=== PATIENT | female | born 1990 | race Caucasian/White ===

== ENCOUNTER 2019-10-29 04:26 | Emergency (ER) | payer MEDICAID, SELFPAY ==
[2019-10-29 04:36] VITALS: BP 120/70; PULSE 86; RESP 14; TEMP 36.8; O2SAT 98; BMI 19.5
--- NOTE | 2019-10-29 04:45 | CT_ITS ---
PROCEDURE: CT ABDOMEN PELVIS W CON CLINICAL INDICATION: RUQ pain Abdominal pain, right upper quadrant pain COMPARISON: No exams were available for comparison TECHNIQUE: IV Contrast: 75ML OPTIRAY 350 Oral Contrast 20ml Gastroview Axial images obtained with sagittal and coronal reformats. All CT scans at the facility use one or more dose reduction, viz: automated exposure control, ma/kV adjustment per patient size (including targeted exams where dose is matched to indication, i.e. head), or iterative reconstruction technique. FINDINGS: LOWER THORAX: No acute finding ABDOMEN & PELVIS: The liver, spleen, adrenal glands, pancreas, and kidneys have an unremarkable appearance. Gallbladder is distended. On image number 35 series 3 there is a small area of increased density in the region of the neck of the gallbladder. This could be due to partial volume averaging artifact or possible small noncalcified stone. Gallbladder ultrasound may provide further evaluation. This area measures approximately 8-9 mm. A No evidence of appendicitis, intestinal obstruction, free air, or diverticulitis. The Tubal ligation clips are present. The uterus has a somewhat bulky appearance with undulated margins. Fibroid involvement is a consideration. Pelvic ultrasound may provide further evaluation. There are small left ovarian follicles noted. No acute bony findings. IMPRESSION: 1. Distended gallbladder with possible stone or sludge in the cystic duct. Gallbladder ultrasound may provide further evaluation. 2. Mild lobular contour of the uterus which could be seen with fibroids and may be better evaluated with ultrasound. Dictated by: Rogerio Casarez MD 10/29/2019 08:21 Electronically signed by Rogerio Casarez MD in [place] 10/29/2019 08:21
[2019-10-29 04:52] LABS: Microscopic, Urine URINE MICROSCOPIC (MICROSCOPIC)
[2019-10-29 04:54] LABS: Basophils # 0.1 K/mm3 (0-0.2); Basophils % 0.8 % (0.1-2.0); Eosinophils # 0.2 K/mm3 (0.0-0.4); Eosinophils % 2.3 % (0.1-12.0); Hematocrit 41.7 % (37.0-47.0); Hemoglobin 13.5 g/dL (12.2-16.2); Lymphocytes # 2.8 K/mm3 (0.7-4.5); Lymphocytes % 27.5 % (10-50); Mean Corpuscular HGB Conc 32.3 g/dL (31.8-35.4); Mean Corpuscular Hemoglobin 28.2 pg (27.0-31.2); Mean Corpuscular Volume 87.2 fl (81-99); Mean Platelet Volume 9.1 fl (7.4-10.4); Monocytes # 0.5 K/mm3 (0.1-1.0); Neutrophils # 6.6 K/mm3 (1.8-7.8); Neutrophils % 64.5 % (37.0-80.0); Platelet Count 305 K/mm3 (142-424); Red Blood Count 4.78 M/mm3 (4.20-5.40); Red Cell Distribution Width 13.9 % (11.5-17.5); White Blood Count 10.3 K/mm3 (4.8-10.8)
--- NOTE | 2019-10-29 04:58 | PC.NURSE ---
Pt completed oral contrast, Pilar notified in radiology
[2019-10-29 05:04] LABS: Appearance,Urine CLEAR (Clear); Bilirubin,Urine Negative (Negative); Blood, Urine 2+ (Negative); Color,Urine YELLOW (Yellow); Glucose,Urine (UA) Negative (Negative); Ketones,Urine Negative (Negative); Leukocyte Esterase,Urine Negative (Negative); Nitrate,Urine Negative (Negative); Protein,Urine Negative (Negative); Specific Gravity, Urine >= 1.030 (1.005-1.030); Urobilinogen,Urine 0.2 EU/dl (0.2)
[2019-10-29 05:07] LABS: Amorphous Sediment,Urine Trace /lpf; Mucus,Urine 1+ /lpf
[2019-10-29 05:08] LABS: Alanine Aminotransferase 34 U/L (12-78); Albumin Level 4.4 g/dl (3.5-5.0); Albumin/Globulin Ratio 1.4 (1.1-1.8); Alkaline Phosphatase 68 U/L (38-126); Amylase 47 U/L (30-110); Anion Gap 11.8 mEq/L (5-15); Aspartate Amino Transferase 35 U/L (14-36); Blood Urea Nitrogen 8 mg/dl (7-17); Carbon Dioxide 26 mmol/L (22.0-30.0); Chloride 103 mmol/L (98-107); Creatinine Clearance Estimated 131 mL/min (50-200); Estimated Glomerular Filt Rate 146 ml/min (>60); GFR (African American) 177 ML/MIN (>60); Globulin 3.2 g/dL (1.3-3.2); Glucose 92 mg/dl (74-100); Lipase 27 U/L (23-300); Potassium 3.8 mmoL/L (3.5-5.1); Sodium 137 mmol/L (136-145); Total Protein,Serum 7.6 g/dl (6.3-8.2)
[2019-10-29 05:10] LABS: Bilirubin,Total < 0.1 mg/dl (0.2-1.3)
[2019-10-29 05:45] VITALS: BP 115/63; PULSE 63; RESP 14; O2SAT 97
[2019-10-29 06:44] VITALS: BP 109/70; PULSE 71; RESP 16; O2SAT 98
--- NOTE | 2019-10-29 07:18 | HMH.EDABDPAI ---
ED Disposition Clinical Impression: Colitis Disposition: Home, Self-Care Condition on Discharge: Good Instructions: DI for Acute Abdomen Prescriptions: Dicyclomine HCl [Bentyl 10mg capsule] 10 mg PO TID 4 Days #21 cap Transmission Status: Pending to [facility] Ciprofloxacin HCl [Cipro 500mg Tab] 500 mg PO BID 10 Days #20 tab Transmission Status: Pending to [facility] metroNIDAZOLE [Flagyl 500mg Tablet] 500 mg PO Q8H 7 Days #21 tab Transmission Status: Pending to [facility] Promethazine HCl 50 mg PO TID 4 Days #15 tab Transmission Status: Pending to [facility] Referrals: Provider,Referral, [Primary Care Provider] - - Critical Care Critical Care Time: No Attestation: On 10/29/19, the high probability of a clinically significant, sudden or life threatening deterioration of the following system(s) required my full and direct attention, intervention and personal management. The time I documented below is in addition to time spent performing reported procedures but includes the following listed in this critical care notation. Medical Decision Making - Medical Records Medical records reviewed: Yes: I reviewed the patient's medical records. - Chacho Inquiry Pt receiving controlled substance: No Vital Signs: 10/29/19 04:36 10/29/19 05:45 10/29/19 06:44 Temperature 98.3 F Temperature Source Oral Pulse Rate [Right] 86 63 71 Respiratory Rate 14 14 16 Blood Pressure [Right Arm] 120/70 115/63 109/70 L Blood Pressure Mean [Right Arm] 86 80 83 Blood Pressure Source [Right Arm] Automatic Cuff Automatic Cuff Blood Pressure Position [Right Arm] Sitting Supine 02 Sat by Pulse Oximetry 98 97 98 Oxygen Delivery Method Room Air Room Air Room Air - Lab Data Lab results reviewed: Yes: I reviewed the patient's lab results. Lab Results 10/29/19 04:43: Urine Color Yellow, Urine Appearance Clear, Urine pH 6.0, Ur Specific [place] >= 1.030, Urine Protein Negative, Urine Glucose (UA) Negative, Urine Ketones Negative, Urine Blood 2+, Urine Nitrate Negative, Urine Bilirubin Negative, Urine Urobilinogen 0.2, Ur Leukocyte Esterase Negative, Urine RBC 3-5, Urine WBC 3-5, Ur Squamous Epith Cells 5-10, Amorphous Sediment Trace, Urine Mucus 1+ 04/27/20 04:43: WBC 10.3, RBC 4.78, Hgb 13.5, Hct 41.7, MCV 87.2, MCH 28.2, MCHC 32.3, RDW 13.9, Plt Count 305, MPV 9.1, Neut % (Auto) 64.5, Lymph % (Auto) 27.5, [place] % (Auto) 5.0, Eos % (Auto) 2.3, Baso % (Auto) 0.8, Neut # (Auto) 6.6, Lymph # (Auto) 2.8, [place] # (Auto) 0.5, Eos # (Auto) 0.2, Baso # (Auto) 0.1 10/29/19 04:43: Sodium 137, Potassium 3.8, Chloride 103, Carbon Dioxide 26, Anion Gap 11.8, BUN 8, Creatinine 0.50 L, Estimated Creat Clear 131, Estimated GFR 146, Est GFR ( Amer) 177, Glucose 92, Calcium 10.0, Total Bilirubin < 0.1 L, AST 35, ALT 34, Alkaline Phosphatase 68, Total Protein 7.6, Albumin 4.4, Globulin 3.2, Albumin/Globulin Ratio 1.4, Amylase 47, Lipase 27 Result diagrams: 10/29/19 04:43 10/29/19 04:43 Orders (Tests/Meds): ED MEDICATIONS Generic Name Dose Route Start Last Admin Trade Name Freq PRN Reason Stop Dose Admin Sodium Chloride 1,000 mls @ 999 mls/hr 10/29/19 05:00 10/29/19 04:58 Sod Chlor 0.9% 1000ml Bag IV 10/29/19 06:00 999 mls/hr .Q1H1M DANETTE Administration Discontinued Medications Generic Name Dose Route Start Last Admin Trade Name Freq PRN Reason Stop Dose Admin Diatrizoate Meglum/Diatrizoate Sod 30 ml 10/29/19 04:45 10/29/19 04:57 Gastrografin 66%-10% 30ml PO 10/29/19 04:46 30 ml ONCE ONE Administration Ioversol 75 ml 10/29/19 07:05 10/29/19 07:06 Rad-Optiray 350 100ml Vial IV 10/29/19 07:06 75 ml ONCE ONE Administration Protocol Ketorolac Tromethamine 30 mg 10/29/19 05:20 10/29/19 05:24 Toradol 30mg/Ml Vial IV 10/29/19 05:21 30 mg ONCE ONE Administration Sodium Chloride 10 ml 10/29/19 07:05 10/29/19 07:06 Rad-Saline Flush 10ml Syringe IV
[2019-10-29 07:30] VITALS: BP 112/70; PULSE 72; RESP 18; O2SAT 98
[2019-10-29 07:37] VITALS: BP 112/70; PULSE 72; RESP 18; TEMP 36.8; O2SAT 98
== END 2019-10-29 07:39 | disposition home or self-care (01) ==
PROVIDERS: Emergency Provider Family Medicine
DX: K52.9 Noninfective gastroenteritis and colitis, unspecified (principal); F17.210 Nicotine dependence, cigarettes, uncomplicated
CPT/HCPCS: 74177; 80053; 81001; 82150; 83690; 85025; 96365; 96375; 99284; Q9967

== ENCOUNTER 2019-11-08 18:44 | Observation (INO) | payer MEDICAID, SELFPAY ==
[2019-11-08 18:58] VITALS: BP 121/80; PULSE 97; RESP 18; TEMP 36.9; O2SAT 98; BMI 28.0
[2019-11-08 19:11] LABS: Basophils # 0.1 K/mm3 (0-0.2); Basophils % 0.7 % (0.1-2.0); Eosinophils # 0.1 K/mm3 (0.0-0.4); Eosinophils % 1.1 % (0.1-12.0); Hematocrit 42.7 % (37.0-47.0); Hemoglobin 13.6 g/dL (12.2-16.2); Lymphocytes # 1.4 K/mm3 (0.7-4.5); Lymphocytes % 17.5 % (10-50); Mean Corpuscular HGB Conc 31.9 g/dL (31.8-35.4); Mean Corpuscular Hemoglobin 27.6 pg (27.0-31.2); Mean Corpuscular Volume 86.5 fl (81-99); Mean Platelet Volume 8.7 fl (7.4-10.4); Monocytes # 0.6 K/mm3 (0.1-1.0); Monocytes % 8.1 % (1.7-9.3); Neutrophils # 5.8 K/mm3 (1.8-7.8); Neutrophils % 72.6 % (37.0-80.0); Platelet Count 311 K/mm3 (142-424); Red Blood Count 4.93 M/mm3 (4.20-5.40); White Blood Count 7.9 K/mm3 (4.8-10.8)
[2019-11-08 19:34] LABS: Chloride 105 mmol/L (98-107); Potassium 3.8 mmoL/L (3.5-5.1); Sodium 140 mmol/L (136-145)
[2019-11-08 19:35] LABS: Appearance,Urine CLEAR (Clear); Blood, Urine TRACE-I (Negative); Glucose,Urine (UA) Negative (Negative); Ketones,Urine Negative (Negative); Leukocyte Esterase,Urine TRACE (Negative); Microscopic, Urine URINE MICROSCOPIC (MICROSCOPIC); Nitrate,Urine Negative (Negative); Protein,Urine Negative (Negative); Specific Gravity, Urine 1.025 (1.005-1.030)
[2019-11-08 19:37] LABS: Alanine Aminotransferase 710 U/L (12-78); Albumin Level 4.5 g/dl (3.5-5.0); Albumin/Globulin Ratio 1.5 (1.1-1.8); Alkaline Phosphatase 116 U/L (38-126); Amylase 46 U/L (30-110); Anion Gap 9.8 mEq/L (5-15); Bilirubin,Total 1.7 mg/dl (0.2-1.3); Blood Urea Nitrogen 7 mg/dl (7-17); Calcium 9.4 mg/dl (8.4-10.2); Carbon Dioxide 29 mmol/L (22.0-30.0); Creatinine Clearance Estimated 157 mL/min (50-200); Estimated Glomerular Filt Rate 118 ml/min (>60); GFR (African American) 143 ML/MIN (>60); Globulin 3.1 g/dL (1.3-3.2); Glucose 101 mg/dl (74-100); Lipase 66 U/L (23-300); Total Protein,Serum 7.6 g/dl (6.3-8.2); Urine Pregnancy, HCG Qual. Negative (Negative)
[2019-11-08 19:45] VITALS: BP 110/79; PULSE 78; RESP 16; O2SAT 97
[2019-11-08 19:45] LABS: Aspartate Amino Transferase 856 U/L (14-36)
[2019-11-08 19:51] LABS: Bilirubin,Urine Negative (Negative); Color,Urine Dark Yellow (Yellow); WBC,Urine Occasional #/hpf (0-3)
[2019-11-08 19:52] LABS: Amorphous Sediment,Urine Trace /lpf; Bacteria,Urine Trace /lpf
--- NOTE | 2019-11-08 20:04 | HMH.EDGENADL ---
ED Disposition Clinical Impression: Elevated liver enzymes Cholelithiasis Qualifiers: Cholecystitis presence: without cholecystitis Biliary obstruction: with biliary obstruction Disposition: Admitted as Observation Condition on Discharge: Fair - Critical Care Critical Care Time: No Attestation: On 11/08/19, the high probability of a clinically significant, sudden or life threatening deterioration of the following system(s) required my full and direct attention, intervention and personal management. The time I documented below is in addition to time spent performing reported procedures but includes the following listed in this critical care notation. Medical Decision Making - Medical Records Medical records reviewed: Yes: I reviewed the patient's medical records. - Chacho Inquiry Pt receiving controlled substance: Yes Chacho was queried for this patient: Yes Reference #:: [id number] Risks and benefits of using a controlled substance: were not discussed with pt by me Comment: 1 rx percocet 09/12/19 Vital Signs: 11/08/19 18:58 Temperature 98.4 F Temperature Source Oral Pulse Rate [Right Radial] 97 H Respiratory Rate 18 Blood Pressure [Right Arm] 121/80 Blood Pressure Mean [Right Arm] 93 Blood Pressure Source [Right Arm] Automatic Cuff Blood Pressure Position [Right Arm] Sitting 02 Sat by Pulse Oximetry 98 Oxygen Delivery Method Room Air - Lab Data Lab Results 11/08/19 19:00: Urine Color Dark yellow, Urine Appearance Clear, Urine pH 7.0, Ur Specific [place] 1.025, Urine Protein Negative, Urine Glucose (UA) Negative, Urine Ketones Negative, Urine Blood Trace-i, Urine Nitrate Negative, Urine Bilirubin Negative, Urine Urobilinogen 1.0, Ur Leukocyte Esterase Trace, Urine WBC Occasional, Ur Squamous Epith Cells 3-5, Amorphous Sediment Trace, Urine Bacteria Trace 11/08/19 19:00: WBC 7.9, RBC 4.93, Hgb 13.6, Hct 42.7, MCV 86.5, MCH 27.6, MCHC 31.9, RDW 14.0, Plt Count 311, MPV 8.7, Neut % (Auto) 72.6, Lymph % (Auto) 17.5, [place] % (Auto) 8.1, Eos % (Auto) 1.1, Baso % (Auto) 0.7, Neut # (Auto) 5.8, Lymph # (Auto) 1.4, King # (Auto) 0.6, Eos # (Auto) 0.1, Baso # (Auto) 0.1 11/08/19 19:00: Urine HCG, Qual Negative 11/08/19 19:00: Sodium 140, Potassium 3.8, Chloride 105, Carbon Dioxide 29, Anion Gap 9.8, BUN 7, Creatinine 0.60, Estimated Creat Clear 157, Estimated GFR 118, Est GFR ( Amer) 143, Glucose 101 H, Calcium 9.4, Total Bilirubin 1.7 H, AST 856 H*, ALT 710 H*, Alkaline Phosphatase 116, Total Protein 7.6, Albumin 4.5, Globulin 3.1, Albumin/Globulin Ratio 1.5, Amylase 46, Lipase 66 Result diagrams: 11/08/19 19:00 11/08/19 19:00 Orders (Tests/Meds): ED MEDICATIONS Discontinued Medications Generic Name Dose Route Start Last Admin Trade Name Freq PRN Reason Stop Dose Admin Morphine Sulfate 4 mg 11/08/19 20:09 11/08/19 20:19 Morphine 4mg/Ml Syringe IV 11/08/19 20:10 4 mg ONCE ONE Administration Ondansetron HCl 4 mg 11/08/19 20:09 11/08/19 20:19 Zofran 4mg/2ml Vial IV 11/08/19 20:10 4 mg ONCE ONE Administration - Physician Consults Physician Consulted: Dr. Gee Time: 20:15 Reason -: Admission, Pt condition, Surgical Eval/Care Comment/Response: Agrees to admit the patient to the hospital. We discussed the patient's clinical information, including history, exam, laboratory and radiology results and ED course. Per hospital procedure, I will write temporary bridge inpatient orders on the patient. Specific orders requested by the admitting physician: Clear liquids until midnight, then n.p.o. after midnight. IV fluids. Pain medication. Repeat CBC, CMP, amylase and lipase in the morning. Medical Decision Narrative: Seen in this emergency room on 10/29/2019 for the same symptoms, CT scan results from previous visit here: PROCEDURE: CT ABDOMEN PELVIS W CON CLINICAL INDICATION: RUQ pain Abdominal pain, right upper quadrant pain COMPARISON: No exams were available for comp
--- NOTE | 2019-11-08 20:16 | PC.NURSE ---
consulting Dr. Gee
--- NOTE | 2019-11-08 21:47 | PC.NURSE ---
with pt permission pt father updated on pt condition and admission.
--- NOTE | 2019-11-08 22:10 | PC.NURSE ---
report given to Yvonne CHARLES
[2019-11-08 22:15] VITALS: BP 116/80; PULSE 70; RESP 16; TEMP 36.6; O2SAT 99; BMI 27.5
--- NOTE | 2019-11-08 22:15 | PC.NURSE ---
pt arrived to floor via wheelchair from ED
[2019-11-08 22:16] VITALS: BP 112/81; PULSE 83; RESP 16; TEMP 36.8; O2SAT 97
[2019-11-09] VITALS (31 sets, daily range): BP systolic 100–136; BP diastolic 58–82; PULSE 62–97; RESP 12–18; TEMP 36.1–43; O2SAT 93–97; BMI 27.4
--- NOTE | 2019-11-09 03:31 | PC.NURSE ---
She has been awake t/o the night. She has received PRN medication for pain and nausea. No vomiting. She reports the pain is in her mid abdominal area and radiates to her back.
--- NOTE | 2019-11-09 06:22 | HMH.GSHP ---
HPI HPI: This is a 29-year-old female who presented overnight to the emergency department with increasing epigastric pain. She had noticed upper abdominal pain over the past month that had been evaluated in late October ([facility] emergency department). At that time she was noted to have a distended gallbladder with possible stones versus sludge and a possible stone in the cystic duct. Symptomatically she had improved and was discharged with recommendations for close outpatient surgical follow-up. She was not seen by a surgeon; however, her symptoms did wax and wane . Over the past few days her symptoms had increased. She was evaluated at an outside facility and an ultrasound revealed likely stones. She presented once again to the [facility] emergency department overnight with increasing symptoms. Some nausea. No fevers. No jaundice. Her transaminases were significantly elevated and her bilirubin was slightly elevated at 1.7. The surgical service was consulted for further evaluation. Please see HPI for emergency department evaluation forwarded below: General Adult HPI - General Chief complaint: Abdominal Pain Stated complaint: Vomiting and Abd PAin Time Seen by Provider: 11/08/19 19:50 Mode of Arrival: Ambulatory Limitations: No Limitations Description of Symptoms (Recalled from ER Triage Doc. by RN): PT C/O RUQ PAIN, N/V/D. PT ADVISES THAT SHE WAS IN THE ED 1.5 WEEKS AGO AND TOLD THAT SHE HAS GALLSTONES. PT HAD HER FOLLOW-UP U/S TO CONFIRM AND STATES THAT SHE IS AWAITING SURGERY TO CALL HER FOR AN APPT. PT STATES THAT THE SYMPTOMS HAVE WORSENED. - History of Present Illness HPI narrative: Patient states she has had midepigastric pain going straight through to her back for 1 month. The pain has been constant for the past month, but waxes and wanes. It is more severe the past couple of days. She had an appointment today with [facility] in [place]. She was sent from there to [facility] radiology next to the hospital in [place] and had an ultrasound of her gallbladder. She says she was told she had gallstones. She says she was referred to a surgeon. She says she almost canceled her appointment today to go to the emergency room instead because she was hurting worse. She says she was not prescribed anything by the physician at [facility]. She has been taking Tylenol and ibuprofen for pain. She took 3 Tylenol this morning and has been taking 2 Tylenol every 4-6 hours for the pain. She does not drink alcohol. No history of drug abuse. No history of hepatitis or liver problems. She has had a previous . Pain is made worse by eating and drinking, has been unable to eat and drink the past couple of days. She has also been seen at this hospital and had a CT scan of her abdomen. [facility] History I have reviewed the patient's past medical history: Yes Medical History: Denies:: Diabetes Mellitus Type 1, Diabetes Mellitus Type 2 *Have you ever received a pneumonia vaccine?: No (refuses) *Have you received a flu vaccine this season?: No (refused) Other Surgeries: Yes: Amputation: No Fractures: No - *Social History Educational Level: Attended College Smoking Status: Current every day smoker Tobacco Type: cigarettes # Packs/Day (cigarettes): 1 Alcohol Intake: never *Occupational Status:: unemployed *Travel in the last 8 weeks: None Family Hx:: Non-contributory Review of Systems - Constitutional Denies chills - Eyes Denies change in vision - ENT Denies dizziness - *Cardiovascular Denies chest pain - *Respiratory Denies cough - *Gastrointestinal Reports abdominal pain, Reports nausea, Denies black, tarry stools, Denies pain with swallowing - *Genitourinary Denies difficulty urinating - *Musculoskeletal Denies deformity - Integumentary/Breasts Denies changing lesions - *Neurologic Denies abnormal movements - Psychiatric Denies anxiety - En
[2019-11-09 06:26] LABS: Basophils % 0.5 % (0.1-2.0); Eosinophils # 0.1 K/mm3 (0.0-0.4); Eosinophils % 1.1 % (0.1-12.0); Hematocrit 40.9 % (37.0-47.0); Hemoglobin 13.2 g/dL (12.2-16.2); Lymphocytes # 1.1 K/mm3 (0.7-4.5); Lymphocytes % 13.2 % (10-50); Mean Corpuscular HGB Conc 32.2 g/dL (31.8-35.4); Mean Corpuscular Hemoglobin 28.2 pg (27.0-31.2); Mean Corpuscular Volume 87.7 fl (81-99); Monocytes # 0.7 K/mm3 (0.1-1.0); Monocytes % 8.5 % (1.7-9.3); Neutrophils # 6.2 K/mm3 (1.8-7.8); Neutrophils % 76.7 % (37.0-80.0); Platelet Count 255 K/mm3 (142-424); Red Blood Count 4.67 M/mm3 (4.20-5.40); White Blood Count 8.1 K/mm3 (4.8-10.8)
[2019-11-09 06:35] LABS: Chloride 105 mmol/L (98-107); Potassium 4.3 mmoL/L (3.5-5.1); Sodium 139 mmol/L (136-145)
[2019-11-09 06:38] LABS: Alanine Aminotransferase 597 U/L (12-78); Alkaline Phosphatase 166 U/L (38-126); Amylase 37 U/L (30-110); Anion Gap 10.3 mEq/L (5-15); Aspartate Amino Transferase 452 U/L (14-36); Bilirubin,Total 3.2 mg/dl (0.2-1.3); Blood Urea Nitrogen 5 mg/dl (7-17); Carbon Dioxide 28 mmol/L (22.0-30.0); Creatinine Clearance Estimated 184 mL/min (50-200); Estimated Glomerular Filt Rate 146 ml/min (>60); GFR (African American) 177 ML/MIN (>60); Glucose 105 mg/dl (74-100); Lipase 22 U/L (23-300)
[2019-11-09 06:39] LABS: Albumin Level 4.3 g/dl (3.5-5.0); Albumin/Globulin Ratio 1.4 (1.1-1.8); Total Protein,Serum 7.3 g/dl (6.3-8.2)
--- NOTE | 2019-11-09 07:38 | HMH.PHAVTE ---
[facility] VTE Monitoring - Patient Demographics Admission date: 11/08/19 Report Date: 11/09/19 Time: 07:38 Allergies/Adverse Reactions: Patient Allergies No Known Allergies Allergy (Verified 11/08/19 22:21) Height: 1.6 m Weight: 70.352 kg Patient Problems: Current Active Problems Cholelithiasis (Acute) Elevated liver enzymes (Acute) - VTE Risk Labs: VTE Related Lab Results Hgb 13.2 g/dL (12.2-16.2) 11/09/19 06:05 Hct 40.9 % (37.0-47.0) 11/09/19 06:05 Plt Count 255 K/mm3 (142-424) 11/09/19 06:05 BUN 5 mg/dl (7-17) L D 11/09/19 06:05 Creatinine 0.50 mg/dl (0.52-1.04) L 11/09/19 06:05 Estimated Creat Clear 184 mL/min (50-200) 11/09/19 06:05 Was VTE Risk Assessment Performed: Yes VTE Score: 0 VTE Risk Level: Very Low Risk Clinical Trial Participant: No - Prophylaxis VTE Prophylaxis Ordered?: Yes Types of VTE Prophylaxis: TEDS Knee High
--- NOTE | 2019-11-09 08:58 | HMH.ANESCL ---
[facility] Anesthesia Checklist - Patient Identification Patient Identification: Arm Band, Verbal (Name & ) - Structural Data Admitted From: Inpatient Planned Operative Procedure/s: Laparoscopic cholecystectomy Consent for Planned Operative Procedure(s) Verified: Yes Verified Documents: Surgical Consent, History and Physical - NPO Status Verified Time NPO: 00:00 - Chart Verification Results Verified: CBC, BMP, HCG - Additional verifications Patient : No Anesthesia Reactions: No - Airway Assessment C-Spine Mobility Assessed: Yes TMJ Mobility Assessed: Yes Dentition: Good Dentition (missing teeth) - Neurological Assessment Level of Consciousness: Awake, Alert, Appropriate, Follows Commands Hx Seizures: No Numbness or tingling in extremities: No - Anesthesia Plan Anesthesia Risk discussed: Yes Anesthesia Plan: Verified ASA Class: II (Emergent) Anesthesia Type: General [facility] History I have reviewed the patient's past medical history: Yes Medical History: Denies:: Diabetes Mellitus Type 1, Diabetes Mellitus Type 2 *Have you ever received a pneumonia vaccine?: No (refuses) *Have you received a flu vaccine this season?: No (refused) Anesthesia experience/problems:: no prior complications Other Surgeries: Yes: Amputation: No Fractures: No Comment: Cystoscopy with stent placement - *Social History Educational Level: Attended College Smoking Status: Current every day smoker Tobacco Type: cigarettes # Packs/Day (cigarettes): 1 Alcohol Intake: never Substance Use Type: denies use *Occupational Status:: unemployed *Travel in the last 8 weeks: None Family Hx:: Non-contributory
--- NOTE | 2019-11-09 10:07 | HMH.OPNOTE ---
Date of procedure: 11/09/19 Pre-op Diagnosis:: Cholelithiasis Elevated transaminase Hyperbilirubinemia Post-op Diagnosis:: Same as preoperative diagnoses with the addition of the following: Acute calculus cholecystitis with hydrops Procedure performed:: Laparoscopic cholecystectomy (ERCP planned for later today) Surgeon:: John Gee MD COSTUME DESIGN TEACHER:: Sandeep Vela Anesthesia: GETA Estimated blood loss (mL): 25 Operative findings:: Severe hydrops Severe gallbladder wall thickening Severe pericholecystic fat stranding Severe dilatation of cystic duct/infundibulum Transection at infundibulum with placement of Endoloops Operative note:: After informed consent was obtained, the patient was taken to the operating room and placed in the supine position. General anesthesia was induced and the abdomen was prepped and draped in a sterile fashion. After infiltration with local anesthetic an infraumbilical incision was made. A Veress needle was placed in position. The abdomen was insufflated. A 5 mm optical trocar was placed in position. Under direct visualization, a 12 mm trocar was placed in the subxiphoid position and 2 additional 5 mm trocars were placed in the right upper quadrant. Evaluation of the gallbladder immediately revealed severe hydrops, severe pericholecystic fat stranding, and severe dilatation of the infundibulum/cystic duct. Dissection around the infundibulum confirmed severe inflammation and dilatation. Anatomic differentiation of infundibulum versus cystic duct was exceptionally difficult. The decision was made to forego increased dissection and and around the cystic duct. A dome down approach was chosen. Utilizing harmonic chapito the gallbladder was carefully from the liver margin. Once again severe inflammation and pericholecystic fat stranding confirmed. Dissection was very difficult. Endoloops (x2) were placed at the infundibulum and transection utilizing harmonic chapito just distal to the Endoloops was completed. The gallbladder was placed in a retrieval bag and removed through the subxiphoid trocar site. The right upper quadrant was thoroughly irrigated. No active bleeding or bile leak was noted. Fascia at the subxiphoid trocar site was reapproximated utilizing 0 Ethibond. The remaining trocars were removed. All wounds were irrigated and skin was closed with 4-0 Monocryl in a subcuticular fashion. Steri-Strips were applied. The patient's anesthetic agents were reversed and extubation was completed prior to transfer to recovery in stable condition. Condition: stable Disposition: PACU Specimens:: Gallbladder Complications:: No immediate
--- NOTE | 2019-11-09 10:15 | P.PN_ITS ---
[facility] Anesthesia Record Part I Intake, IV Amount: 1,200 Estimated blood loss (mL): 15 Urine output (mL): 0 (NM) Blood Products used (#): none Blood Pressure: 118/65 SaO2: 93 Pulse Rate: 90 Respiratory Rate: 16 Temperature: 97.0 F Patient is:: Drowsy, Stable Stable to PACU at:: 10:10
--- NOTE | 2019-11-09 10:54 | PC.NURSE ---
1038-detailed report called to MELVIN Paige 1040-pt transported to 2nd floor room 208 via hospital bed per MELVIN Mahoney and LorenRN with nikolai rails up and left in care of MELVIN Paige with bed locked in lowest position. VSS. Pt stable.
--- NOTE | 2019-11-09 13:18 | FL_ITS ---
PROCEDURE: FL ERCP CLINICAL INDICATION: bile duct occlusion COMPARISON: CT ABDOMEN PELVIS W CON from 10/29/2019 FINDINGS: Fluoroscopy time: 4 minutes and 10 seconds. Select images are submitted from the ERCP showing distended common bile duct with abrupt occlusion distally. The proximal biliary radicles are also distended. A stent was placed during the procedure.. There is question of some pruning of the biliary radicles IMPRESSION: Occluded common bile duct with passage of a stent and drainage of the biliary tree. Please correlate with fluoroscopic findings Dictated by: Rogerio Casarez MD 11/14/2019 10:00 Electronically signed by Rogerio Casarez MD in [place] 11/14/2019 10:00
--- NOTE | 2019-11-09 13:38 | HMH.ANESII ---
[facility] Anesthesia Record Part II Discharge Time: 10:45 Destination: Medical Surgical Department PACU nurse assessment reviewed?: Yes Patient Condition:: Good Anesthesia Complications:: None Swallowing reflex intact?: Yes Cyanosis?: No Blood Pressure: 122/75 Pulse Rate: 76 Temperature: 97.6 F Mental Status: Alert & Oriented Pain level:: 0 Nausea and/or vomitting:: None Intake, IV Amount: 0
--- NOTE | 2019-11-09 16:01 | HMH.PROC ---
[facility] Procedure Note Procedure Note:: ERCP procedure Report: Endoscopic retrograde cholangiopancreatography with biliary sphincterotomy, stone extraction and stent placement Endoscopist: Dedrick Ceballos II, MD Referring Physician: John Gee MD Date of Procedure: November 09, 2019 Equipment: Olympus 180 side viewing endoscope duodenoscope Sedation: MAC sedation Indication: Mrs. Mcarthur is a 29-year-old female who had presented 3 to 4 weeks ago with some dyspepsia. Her ultrasound at that time showed stones versus sludge and distended gallbladder. There was apparent possible cystic duct stone. The patient did improve and went home. She returned with ongoing upper abdominal pain and nausea. Lab work showed elevated transaminases with ALT 710, AST 856, alkaline phosphatase 116 and total bilirubin 1.7. Overnight, her transaminases improved with ALT this morning 597. Her alkaline phosphatase bumped up to 166 and her total bilirubin increased to 3.2. She did have cholecystectomy today and had acute cholecystitis with hydrops and gallstones. Procedure: Prior to the procedure, a history and physical exam was performed, and patient's medications and allergies were reviewed. The risks, benefits and alternatives of the sedation and procedure were discussed with the patient. All questions were answered and informed consent was obtained. The patient was brought to the fluoroscopic radiology room. Patient identification and proposed procedure were verified by the physician and the nurse. The patient was placed in a swimmer's position between left lateral decubitus and prone position and the scope was passed under direct vision. Throughout the procedure, the patient's blood pressure, pulse, and oxygen saturations were monitored continuously. The ERCP was accomplished without difficulty. The patient tolerated the procedure well. Findings: The side-viewing duodenal scope was advanced directly into the upper esophagus and passed to the second portion of the duodenum. The ampulla was well visualized. Both the common bile duct and pancreatic duct were cannulated. A partial but not full pancreatogram was performed and there was normal filling of the head, neck and a portion of the body of the pancreas which was normal at 2 to 3 mm size and no ductular ectasias. Full filling of the pancreatic duct was not performed to prevent post ERCP pancreatitis. Next, the common bile duct was selectively cannulated. The cholangiogram did show a dilated 9 to 10 mm common bile duct with a distal filling defect which appeared to be partially with some sludge and stone in the distal common bile duct. This did measure 8 x 10 mm. There was normal filling of the intrahepatic biliary system there was no biliary stricturing. The cystic duct stump showed some partial filling. Next, a biliary sphincterotomy was performed. There was extravasation of some purulent cloudy liquid/pus and fragmented debris/sludge. After a generous biliary sphincterotomy, a 9 to 12 mm balloon was placed at the hilum and swept through the biliary system. There was a moderate amount of sludge and fragmented stone but not a full stone. Another cholangiogram showed that there was still some impacted stone at or near the ampulla. The sweeping balloon was used to dilate at the ampulla. After several biliary sweeps, there was excellent decompression of the biliary system but because of the proximal ampullary edema and passage of continued pus and fragmented debris, a 10 English/7 cm straight stent was deployed into the biliary system with excellent placement confirmed fluoroscopically. There was still some cloudy drainage through the stent. The procedure was then ended. Impression: 1. Choledocholithiasis with early cholangitis status post sphincterotomy and stone extraction with stent placement Plan: I will plan to have the patient return in 8 to 10 weeks with removal of the biliary stent. At that time,
--- NOTE | 2019-11-09 18:09 | PC.NURSE ---
Pt has been pleasant and cooperative this shift. Pt has been off the unit the majority of the shift for a cholecystectomy and an ERCP. No complaints of SOA. Pt complained of pain X2 this shift and was medicated with Morphine and Mission per SEP. Pt ambulates independently to and from the bathroom. Bilateral IPC sleeves in place to lower extremities. Diet changed to ice chips only until AM, then advance as tolerated per Dr. Ceballos. AM assessment findings remain unchanged with nothing abnormal to note. 20 G peripheral IV in place to the RT AC with NS infusing @ 125 ML/HR. VSS. Call light within reach. Will continue to monitor.
--- NOTE | 2019-11-09 19:09 | PC.NURSE ---
report given to ml
[2019-11-10] VITALS: BP 110/63; PULSE 81; RESP 16; TEMP 36.7; O2SAT 95
--- NOTE | 2019-11-10 02:56 | PC.NURSE ---
A&O X4. PT HAS RESTED WELL T/O SHIFT WITH EYES CLOSED. BILATERAL LUNGS NOTED CLEAR T/O UPON AUSCULTATION. TOLERATED RA WELL. DENIES SOA OR COUGH. DENIES AMB TENDERNESS UPON PALPATION. LAP SITES X3 NOTED TO ABDOMEN. DSG'S NOTED DRY AND INTACT WITH MINIMAL DRAINAGE NOTED. PT C/O MINIMAL PAIN TO ABDOMEN THIS SHIFT. THUS FAR THIS RN HAS ADMINISTERED ONE DOSE OF NORCO PER SEP. UPON REASSESSMENT PT STATES ADEQUATE PAIN RELIEF. DENIES N/V. PT REMAINS NPO WITH ICE CHIPS ONLY. WILL ADVANCE DIET TOLERATED THIS AM PER MD ORDERS. SCUDS NOTED ON BLE. AMB INDEPENDENTLY TO AND FROM BATHROOM. NO BM THUS FAR THIS SHIFT. VSS. REMAINS SAFE. CALL LIGHT WITHIN REACH. WILL CONTINUE TO MONITOR.
[2019-11-10 04:00] VITALS: BP 110/63; PULSE 92; RESP 17; TEMP 36.9; O2SAT 95
[2019-11-10 04:40] VITALS: BMI 28.7
--- NOTE | 2019-11-10 06:36 | PC.NURSE ---
THIS RN GAVE PT APPLE JUICE THIS AM UPON ROUNDS. UPON REASSESSMENT PT STATES NO DISCOMFORT OR PAIN AFTER DRINKING THE JUICE. ORDERED ADV DIET OF FULL LIQUIDS FOR HER BREAKFAST TRAY.
[2019-11-10 07:47] LABS: Basophils % 0.4 % (0.1-2.0); Eosinophils % 0.5 % (0.1-12.0); Hematocrit 38.1 % (37.0-47.0); Hemoglobin 12.2 g/dL (12.2-16.2); Lymphocytes # 1.8 K/mm3 (0.7-4.5); Lymphocytes % 19.8 % (10-50); Mean Corpuscular Hemoglobin 27.5 pg (27.0-31.2); Mean Corpuscular Volume 85.7 fl (81-99); Mean Platelet Volume 9.7 fl (7.4-10.4); Monocytes # 0.5 K/mm3 (0.1-1.0); Neutrophils # 6.5 K/mm3 (1.8-7.8); Neutrophils % 73.4 % (37.0-80.0); Platelet Count 310 K/mm3 (142-424); Red Blood Count 4.44 M/mm3 (4.20-5.40); Red Cell Distribution Width 14.3 % (11.5-17.5); White Blood Count 8.9 K/mm3 (4.8-10.8)
[2019-11-10 08:00] VITALS: BP 124/74; PULSE 100; RESP 18; TEMP 37.1; O2SAT 97
[2019-11-10 08:07] LABS: Alanine Aminotransferase 351 U/L (12-78); Albumin Level 3.8 g/dl (3.5-5.0); Albumin/Globulin Ratio 1.4 (1.1-1.8); Alkaline Phosphatase 231 U/L (38-126); Anion Gap 9.2 mEq/L (5-15); Aspartate Amino Transferase 171 U/L (14-36); Bilirubin,Total 3.1 mg/dl (0.2-1.3); Blood Urea Nitrogen 5 mg/dl (7-17); Calcium 8.4 mg/dl (8.4-10.2); Carbon Dioxide 24 mmol/L (22.0-30.0); Chloride 106 mmol/L (98-107); Creatinine Clearance Estimated 161 mL/min (50-200); Estimated Glomerular Filt Rate 118 ml/min (>60); GFR (African American) 143 ML/MIN (>60); Globulin 2.8 g/dL (1.3-3.2); Glucose 116 mg/dl (74-100); Potassium 3.2 mmoL/L (3.5-5.1); Sodium 136 mmol/L (136-145); Total Protein,Serum 6.6 g/dl (6.3-8.2)
--- NOTE | 2019-11-10 08:33 | P.PN_ITS ---
Subjective Patient reports: feels better Narrative: Patient states that she feels much better after her cholecystectomy and ERCP. Exam Vital signs and Labs for Last 24 Hours: Temp Pulse Resp BP Pulse Ox 98.7 F 100 H 18 124/74 97 11/10/19 08:00 11/10/19 08:00 11/10/19 08:00 11/10/19 08:00 11/10/19 08:00 Laboratory Results - last 24 hr 11/09/19 05:39: POC Glucose Cancelled 11/10/19 07:35: WBC 8.9, RBC 4.44, Hgb 12.2, Hct 38.1, MCV 85.7, MCH 27.5, MCHC 32.0, RDW 14.3, Plt Count 310, MPV 9.7, Neut % (Auto) 73.4, Lymph % (Auto) 19.8, [place] % (Auto) 6.0, Eos % (Auto) 0.5, Baso % (Auto) 0.4, Neut # (Auto) 6.5, Lymph # (Auto) 1.8, [place] # (Auto) 0.5, Eos # (Auto) 0.0, Baso # (Auto) 0.0 11/10/19 07:35: Sodium 136, Potassium 3.2 L D, Chloride 106, Carbon Dioxide 24, Anion Gap 9.2, BUN 5 L, Creatinine 0.60, Estimated Creat Clear 161, Estimated GFR 118, Est GFR ( Amer) 143, Glucose 116 H, Calcium 8.4, Total Bilirubin 3.1 H, AST 171 H D, ALT 351 H*, Alkaline Phosphatase 231 H, Total Protein 6.6, Albumin 3.8 D, Globulin 2.8, Albumin/Globulin Ratio 1.4 I & O for Last 24 hours: Intake & Output 11/07/19 11/08/19 11/09/19 11/10/19 11:59 11:59 11:59 11:59 Intake Total 2000 / 1999 1100 / 1100 Output Total 800 / 800 1300 / 1300 Balance 1200 / 1200 -200 / -200 Weight 155 lb 1.6 oz 162 lb 2 oz - *Routine Abdominal Exam Present: soft Progress Note: A&P (1) Cholelithiasis Status: Acute Current Visit: Yes (2) Elevated liver enzymes Status: Acute Current Visit: Yes Assessment and Plan for All Diagnoses:: Plan for discharge home with early outpatient follow-up with surgery and follow- up with gastroenterology.
--- NOTE | 2019-11-10 10:12 | HMH.DCSUM ---
General - General Admission date:: 11/08/19 Discharge date: 11/10/19 HPI HPI: This is a 29-year-old female who presented overnight to the emergency department with increasing epigastric pain. She had noticed upper abdominal pain over the past month that had been evaluated in late October ([facility] emergency department). At that time she was noted to have a distended gallbladder with possible stones versus sludge and a possible stone in the cystic duct. Symptomatically she had improved and was discharged with recommendations for close outpatient surgical follow-up. She was not seen by a surgeon; however, her symptoms did wax and wane . Over the past few days her symptoms had increased. She was evaluated at an outside facility and an ultrasound revealed likely stones. She presented once again to the [facility] emergency department overnight with increasing symptoms. Some nausea. No fevers. No jaundice. Her transaminases were significantly elevated and her bilirubin was slightly elevated at 1.7. The surgical service was consulted for further evaluation. Please see HPI for emergency department evaluation forwarded below: General Adult HPI - General Chief complaint: Abdominal Pain Stated complaint: Vomiting and Abd PAin Time Seen by Provider: 11/08/19 19:50 Mode of Arrival: Ambulatory Limitations: No Limitations Description of Symptoms (Recalled from ER Triage Doc. by RN): PT C/O RUQ PAIN, N/V/D. PT ADVISES THAT SHE WAS IN THE ED 1.5 WEEKS AGO AND TOLD THAT SHE HAS GALLSTONES. PT HAD HER FOLLOW-UP U/S TO CONFIRM AND STATES THAT SHE IS AWAITING SURGERY TO CALL HER FOR AN APPT. PT STATES THAT THE SYMPTOMS HAVE WORSENED. - History of Present Illness HPI narrative: Patient states she has had midepigastric pain going straight through to her back for 1 month. The pain has been constant for the past month, but waxes and wanes. It is more severe the past couple of days. She had an appointment today with [facility] in [place]. She was sent from there to [facility] radiology next to the hospital in [place] and had an ultrasound of her gallbladder. She says she was told she had gallstones. She says she was referred to a surgeon. She says she almost canceled her appointment today to go to the emergency room instead because she was hurting worse. She says she was not prescribed anything by the physician at [facility]. She has been taking Tylenol and ibuprofen for pain. She took 3 Tylenol this morning and has been taking 2 Tylenol every 4-6 hours for the pain. She does not drink alcohol. No history of drug abuse. No history of hepatitis or liver problems. She has had a previous . Pain is made worse by eating and drinking, has been unable to eat and drink the past couple of days. Hospital Course Hospital Course: The patient underwent laparoscopic cholecystectomy followed by ERCP. Please see operative/procedure reports for detail. She was found to have acute calculous cholecystitis with hydrops, as well as, choledocholithiasis. She was placed on Zosyn post-operatively and remained afebrile with stable and normal vital signs. She ambulated without difficulty and tolerated clear liquids. She convalesced well and was deemed appropriate for discharge on POD1. Objective Vital signs: Temp Pulse Resp BP Pulse Ox 98.7 F 100 H 18 124/74 97 11/10/19 08:00 11/10/19 08:00 11/10/19 08:00 11/10/19 08:00 11/10/19 08:00 no acute distress - *Routine HEENT Exam Head: Present: normocephalic, atraumatic Eye: Present: EOMI ENT: Present: mucous membranes moist - *Routine Neck Exam Present: full ROM - *Routine Respiratory Exam Present: CTA bilaterally - *Routine Cardiovascular Exam Present: RRR - *Routine Abdominal Exam Present: soft - *Routine Extremities Exam Present: full ROM - Routine Back/Spine/Pelvis Exam Back/Spine: Present: full ROM - *Rou
--- NOTE | 2019-11-10 10:35 | HMH.PHAINT ---
DISCHARGE COUNSELING COMPLETED ON PATIENT. ONLY NEW PRESCRIPTION IS LORTAB WHICH WAS SENT TO [facility]. PATIENT IS TO CONTINUE ALL OTHER HOME MEDICATIONS EXCEPT BENTYL. PATIENT VERBALIZED UNDERSTANDING AND HAD NO QUESTIONS AT THIS TIME. -AMANDA PERERA, NATHAND
== END 2019-11-10 10:06 | disposition home or self-care (01) ==
LOC: ER 20:32 → 2ND 20:58
PROVIDERS: Internal Medicine Gastroenterology; Admitting Provider Surgery; Emergency Provider Emergency Medicine; Visit Provider Surgery
PROC: 0FT44ZZ Resection of Gallbladder, Percutaneous Endoscopic Approach (ICD-10-PCS; CPT 47562; principal; 2019-11-09 08:00)
PROC: (CPT 43264; principal; 2019-11-09 13:00)
DX: K80.61 Calculus of gallbladder and bile duct with cholecystitis, unspecified, with obstruction (principal); K82.1 Hydrops of gallbladder
CPT/HCPCS: 47562; 43264; 43274; 36415; 74330; 80053; 81001; 81025; 82150; 83690; 85025; 88304; 96374; 96375; 99283; C2617; G0378; J2405; J2543

== ENCOUNTER 2020-01-07 12:57 | Day surgery (SDC) | payer MEDICAID, SELFPAY ==
[2020-01-02 13:36] VITALS: BMI 28.3
[2020-01-07] VITALS (7 sets, daily range): BP systolic 104–133; BP diastolic 52–72; PULSE 65–87; RESP 16; TEMP 36.2–36.9; O2SAT 96–100
[2020-01-07 13:36] LABS: Urine Pregnancy, HCG Qual. Negative (Negative)
[2020-01-07 14:13] LABS: Coronavirus 19 IgG Antibody Negative (Negative); Coronavirus 19 IgM Antibody Negative (Negative)
--- NOTE | 2020-01-07 15:00 | FL_ITS ---
PROCEDURE: FL ERCP CLINICAL INDICATION: stent removal COMPARISON: No exams were available for comparison FINDINGS: Fluoroscopy time: 6 minutes and 9 seconds Select images are obtained from the ERCP showing contrast injected into the common bile duct with a filling defect in the distal aspect of the common bile duct consistent with a common duct stone. There was some debris also noted in the distal common bile duct. IMPRESSION: Choledocholithiasis Dictated by: Rogerio Casarez MD 01/08/2020 12:23 Electronically signed by Rogerio Casarez MD in [place] 01/08/2020 12:23
--- NOTE | 2020-01-07 15:45 | HMH.PROC ---
[facility] Procedure Note Procedure Note:: ERCP procedure Report: Endoscopic retrograde cholangiopancreatography with stent removal, biliary sphincterotomy (extension), sphincteroplasty (TTS balloon dilation of sphincter), balloon and basket extraction Endoscopist: Dedrick Ceballos II, MD Referring Physician: John Gee M.D. Date of Procedure: January 07, 2020 Equipment: Olympus 180 side viewing endoscope duodenoscope Sedation: MAC sedation Indication: Mrs. Mcarthur is a 29-year-old female who presented with upper abdominal pain and biliary colic. She did have choledocholithiasis and her bilirubin increased to 3.2. She had cholecystectomy with evidence of acute cholecystitis and gallbladder hydrops. Her ERCP on November 09, 2019 showed choledocholithiasis with early cholangitis. She had sphincterotomy and balloon extraction as well as a temporary biliary stent placement. She is here today for stent removal and complete clearance of the biliary system. She is clinically much improved and has had no significant abdominal pain since discharge from the hospital in early November 2019. Procedure: Prior to the procedure, a history and physical exam was performed, and patient's medications and allergies were reviewed. The risks, benefits and alternatives of the sedation and procedure were discussed with the patient. All questions were answered and informed consent was obtained. The patient was brought to the fluoroscopic radiology room. Patient identification and proposed procedure were verified by the physician and the nurse. The patient was placed in a swimmer's position between left lateral decubitus and prone position and the scope was passed under direct vision. Throughout the procedure, the patient's blood pressure, pulse, and oxygen saturations were monitored continuously. The ERCP was accomplished without difficulty. The patient tolerated the procedure well. Findings: The side-viewing duodenal scope was passed directly into the upper esophagus and advanced to the second portion of the duodenum. The esophagus, stomach and duodenum were grossly normal. The biliary stent was grasped with a snare and removed from the biliary system in a retrograde fashion out per oral with the scope. The scope was again advanced to the ampulla and the common bile duct was selectively cannulated. The cholangiogram did show a 9?10 mm common bile duct with distal CBD filling defects that were 3 or 4 number and were more clearly seen. These filling defects were 7 to 8 mm in size. Extension of the biliary sphincterotomy was performed initially with extension of the biliary sphincterotomy generously. The 9-12 sweeping balloon was utilized but there was only passage of some debris but no stones. Next, a sphincteroplasty was performed with TTS balloon dilation of the ampulla and distal CBD to 6 mm. Next, the trapezoid basket (2 x 4 cm) was placed into the biliary system and the distal stones were caught in the basket and with the basket partially close could not be pulled so the basket was closed and the stones were crushed with passage of a moderate amount of stones and debris. After removal of a couple of additional fragmented stones, the sweeping balloon was utilized again. This was swept through the biliary system with the passage of the remaining solid stony debris within the biliary system. There was excellent decompression of the biliary system and no further biliary stones identified. Impression: 1. Choledocholithiasis (4 additional 7-8 mm CBD stones) status post biliary clearance (extension of biliary sphincterotomy, sphincteroplasty and balloon/basket clearance) Plan: I will discuss the findings with the patient and family. It is possible that she has recurrent choledocholithiasis giving her lithogenic bile. She now has complete clearance and decompression of the biliary system and is clinically doing well.
== END 2020-01-07 16:42 | disposition home or self-care (01) ==
LOC: OUTP 12:59
PROVIDERS: PCP Internal Medicine Gastroenterology; Visit Provider Internal Medicine Gastroenterology
PROC: (CPT 43275; principal; 2020-01-07 14:00)
DX: K80.61 Calculus of gallbladder and bile duct with cholecystitis, unspecified, with obstruction (principal); Z87.442 Personal history of urinary calculi; Z80.3 Family history of malignant neoplasm of breast; Z72.0 Tobacco use; Z90.49 Acquired absence of other specified parts of digestive tract
CPT/HCPCS: 43275; 43262; 43264; 74330; 81025; 86328; C1726; Q9967

== ENCOUNTER 2020-01-07 20:59 | Emergency (ER) | payer MEDICAID, SELFPAY ==
[2020-01-07 21:11] VITALS: BP 129/65; PULSE 75; RESP 20; TEMP 36.7; O2SAT 97; BMI 28.3
--- NOTE | 2020-01-07 21:27 | CT_ITS ---
PROCEDURE: CT ABDOMEN PELVIS W CON CLINICAL INDICATION: BELLY PAIN Abdominal pain, epigastric pain, severe abdominal pain following ERCP COMPARISON: CT ABDOMEN PELVIS W CON from 10/29/2019 FL ERCP from 01/07/2020 TECHNIQUE: IV Contrast: 75ML OPTIRAY 350 Oral Contrast None Axial images obtained with sagittal and coronal reformats. All CT scans at the facility use one or more dose reduction, viz: automated exposure control, ma/kV adjustment per patient size (including targeted exams where dose is matched to indication, i.e. head), or iterative reconstruction technique. FINDINGS: LOWER THORAX: Atelectatic changes are present in the right middle lobe and lung bases. ABDOMEN & PELVIS: There is a small air bubble within the left hepatic lobe which may be sequela from the recent ERCP. There has been a prior cholecystectomy. No focal liver lesion is evident. The spleen, adrenal glands, and pancreas have an unremarkable appearance. No evidence of acute pancreatitis. No free intraperitoneal air is evident. There is some mild thickening the mucosa the duodenal bulb nonspecific. There is also some mild scattered areas of thickening of the colon which could be due to nondistention versus colitis. Unremarkable appendix. No intestinal obstruction or free air. There is a right-sided tubal ligation clip. There is some mild prominence of the para uterine vessels on the left. There are few scattered colonic diverticula but no evidence of diverticulitis. The IMPRESSION: 1. Minimal pneumobilia which could be due to to the recent ERCP or patent sphincter of Oddi. 2. No evidence of pneumoperitoneum or pancreatitis. 3. Mild nonspecific thickening of the duodenum and scattered areas of the colon which may be due to nondistention versus inflammatory change 4. Right middle lobe atelectasis or infiltrate Dictated by: Rogerio Casarez MD 01/08/2020 08:40 Electronically signed by Rogerio Casarez MD in [place] 01/08/2020 08:40
[2020-01-07 21:46] LABS: Microscopic, Urine URINE MICROSCOPIC (MICROSCOPIC)
[2020-01-07 21:47] LABS: Chloride 103 mmol/L (98-107); Potassium 3.9 mmoL/L (3.5-5.1); Sodium 137 mmol/L (136-145)
[2020-01-07 21:48] LABS: Appearance,Urine CLEAR (Clear); Blood, Urine 3+ (Negative); Color,Urine YELLOW (Yellow); Glucose,Urine (UA) Negative (Negative); Ketones,Urine Negative (Negative); Leukocyte Esterase,Urine TRACE (Negative); Nitrate,Urine Negative (Negative); Protein,Urine Negative (Negative); Specific Gravity, Urine >= 1.030 (1.005-1.030)
[2020-01-07 21:49] LABS: Amylase 35 U/L (30-110)
[2020-01-07 21:50] LABS: Alanine Aminotransferase 365 U/L (12-78); Albumin Level 4.2 g/dl (3.5-5.0); Albumin/Globulin Ratio 1.4 (1.1-1.8); Alkaline Phosphatase 176 U/L (38-126); Anion Gap 9.9 mEq/L (5-15); Aspartate Amino Transferase 633 U/L (14-36); Basophils # 0.1 K/mm3 (0-0.2); Basophils % 0.6 % (0.1-2.0); Bilirubin,Total 1.2 mg/dl (0.2-1.3); Blood Urea Nitrogen 6 mg/dl (7-17); Calcium 9.2 mg/dl (8.4-10.2); Carbon Dioxide 28 mmol/L (22.0-30.0); Creatinine Clearance Estimated 190 mL/min (50-200); Eosinophils # 0.1 K/mm3 (0.0-0.4); Eosinophils % 0.7 % (0.1-12.0); Estimated Glomerular Filt Rate 146 ml/min (>60); GFR (African American) 177 ML/MIN (>60); Glucose 114 mg/dl (74-100); Hematocrit 39.5 % (37.0-47.0); Hemoglobin 13.8 g/dL (12.2-16.2); Lipase 28 U/L (23-300); Lymphocytes # 1.5 K/mm3 (0.7-4.5); Lymphocytes % 11.4 % (10-50); Mean Corpuscular HGB Conc 35.1 g/dL (31.8-35.4); Mean Corpuscular Volume 82.8 fl (81-99); Mean Platelet Volume 9.3 fl (7.4-10.4); Monocytes # 0.7 K/mm3 (0.1-1.0); Neutrophils # 10.8 K/mm3 (1.8-7.8); Neutrophils % 82.4 % (37.0-80.0); Platelet Count 241 K/mm3 (142-424); Red Blood Count 4.77 M/mm3 (4.20-5.40); Red Cell Distribution Width 14.3 % (11.5-17.5); Total Protein,Serum 7.2 g/dl (6.3-8.2); White Blood Count 13.1 K/mm3 (4.8-10.8)
[2020-01-07 22:02] VITALS: BP 98/59; PULSE 69; RESP 14; O2SAT 98
[2020-01-07 22:04] LABS: Bilirubin,Urine 1+ (Negative)
[2020-01-07 22:05] LABS: Bacteria,Urine Trace /lpf
--- NOTE | 2020-01-07 22:39 | HMH.EDNVD ---
ED Disposition Clinical Impression: Elevated liver enzymes, Post procedure discomfort Abdominal pain Qualifiers: Abdominal location: generalized Qualified Code(s): R10.84 - Generalized abdominal pain Disposition: Home, Self-Care Condition on Discharge: Good Instructions: Acute Abdominal Pain Additional Instructions: call pcp and dr thornton in am Referrals: Provider,Referral, [Primary Care Provider] - - Critical Care Critical Care Time: No Attestation: On 01/07/20, the high probability of a clinically significant, sudden or life threatening deterioration of the following system(s) required my full and direct attention, intervention and personal management. The time I documented below is in addition to time spent performing reported procedures but includes the following listed in this critical care notation. Medical Decision Making - Medical Records Medical records reviewed: Yes: I reviewed the patient's medical records. - [place] Inquiry Pt receiving controlled substance: No Vital Signs: 01/07/20 21:11 01/07/20 22:02 01/07/20 22:47 Temperature 98.0 F Temperature Source Oral Pulse Rate [Right Brachial] 75 69 62 Respiratory Rate 20 14 18 Blood Pressure [Right Arm] 129/65 98/59 L 109/57 L Blood Pressure Mean [Right Arm] 86 72 74 Blood Pressure Source [Right Arm] Automatic Cuff Automatic Cuff Automatic Cuff Blood Pressure Position [Right Arm] Sitting Sitting Supine 02 Sat by Pulse Oximetry 97 98 100 Oxygen Delivery Method Room Air Room Air Room Air 01/07/20 23:38 Temperature Temperature Source Pulse Rate [Right Brachial] 60 Respiratory Rate 15 Blood Pressure [Right Arm] 110/53 L Blood Pressure Mean [Right Arm] 72 Blood Pressure Source [Right Arm] Automatic Cuff Blood Pressure Position [Right Arm] Sitting 02 Sat by Pulse Oximetry 100 Oxygen Delivery Method Room Air - Lab Data Lab results reviewed: Yes: I reviewed the patient's lab results. Lab Results 01/07/20 21:35: WBC 13.1 H, RBC 4.77, Hgb 13.8, Hct 39.5, MCV 82.8, MCH 29.0, MCHC 35.1, RDW 14.3, Plt Count 241, MPV 9.3, Neut % (Auto) 82.4 H, Lymph % (Auto) 11.4, [place] % (Auto) 5.0, Eos % (Auto) 0.7, Baso % (Auto) 0.6, Neut # (Auto) 10.8 H, Lymph # (Auto) 1.5, [place] # (Auto) 0.7, Eos # (Auto) 0.1, Baso # (Auto) 0.1 01/07/20 21:35: Sodium 137, Potassium 3.9, Chloride 103, Carbon Dioxide 28, Anion Gap 9.9, BUN 6 L, Creatinine 0.50 L, Estimated Creat Clear 190, Estimated GFR 146, Est GFR ( Amer) 177, Glucose 114 H, Calcium 9.2, Total Bilirubin 1.2, AST 633 H*, ALT 365 H*, Alkaline Phosphatase 176 H, Total Protein 7.2, Albumin 4.2, Globulin 3.0, Albumin/Globulin Ratio 1.4, Amylase 35, Lipase 28 01/07/20 21:41: Urine Color Yellow, Urine Appearance Clear, Urine pH 6.0, Ur Specific [place] >= 1.030, Urine Protein Negative, Urine Glucose (UA) Negative, Urine Ketones Negative, Urine Blood 3+, Urine Nitrate Negative, Urine Bilirubin 1+ A, Urine Urobilinogen 2.0, Ur Leukocyte Esterase Trace, Urine RBC 3-5, Urine WBC 3-5, Ur Squamous Epith Cells 3-5, Urine Bacteria Trace Result diagrams: 01/07/20 21:35 01/07/20 21:35 Orders (Tests/Meds): ED MEDICATIONS Generic Name Dose Route Start Last Admin Trade Name Freq PRN Reason Stop Dose Admin Sodium Chloride 1,000 mls @ 999 mls/hr 01/07/20 21:30 01/07/20 21:40 Sod Chlor 0.9% 1000ml Bag IV 01/07/20 22:30 999 mls/hr .[id number] DANETTE Administration Sodium Chloride 8 ml 01/07/20 21:28 01/07/20 21:38 Sodium Chloride 0.9% 10ml Vial IV 02/06/20 21:27 8 ml NEEDED PRN Administration dilute pepcid Discontinued Medications Generic Name Dose Route Start Last Admin Trade Name Freq PRN Reason Stop Dose Admin Famotidine 20 mg 01/07/20 21:28 01/07/20 21:38 Pepcid 20mg/2ml Vial IV 01/07/20 21:29 20 mg ONCE ONE Administration Ioversol 75 ml 01/07/20 22:10 01/07/20 22:11 Rad-Optiray 350 100ml Vial IV 01/07/20 22:11 75 ml ONCE ONE Administration Protocol
[2020-01-07 22:47] VITALS: BP 109/57; PULSE 62; RESP 18; O2SAT 100
[2020-01-07 23:38] VITALS: BP 110/53; PULSE 60; RESP 15; O2SAT 100
--- NOTE | 2020-01-07 23:48 | PC.NURSE ---
call placed to dr thornton
--- NOTE | 2020-01-08 00:15 | PC.NURSE ---
MD AT BEDSIDE WITH PATIENT. PT REQUESTS REPEAT OF MEDS FOR IMPROVEMENT OF DISCOMFORT. EXPLAINED THOSE MEDS PREVIOUSLY GIVEN WERE ONE TIME MEDS DUE TO THEIR LONG ACTION TIME. VERBAL ORDERS RECEIVED FOR ONE-TIME PHENERGAN DOSE AND THP
[2020-01-08 00:30] VITALS: BP 105/66; PULSE 71; RESP 15; TEMP 36.7; O2SAT 98
== END 2020-01-08 00:34 | disposition home or self-care (01) ==
PROVIDERS: Emergency Provider Emergency Medicine
DX: G89.18 Other acute postprocedural pain (principal); R10.84 Generalized abdominal pain; R74.8 Abnormal levels of other serum enzymes
CPT/HCPCS: 74177; 80053; 81001; 82150; 83690; 85025; 96365; 96375; 99283; J2405; Q9967